=== PATIENT | female | born 1950 ===

== ENCOUNTER 2018-11-09 14:58 | Outpatient (CLI) | payer OTHER | END 2018-11-09 15:00 | disposition home or self-care (01) | LOC: RAD 14:58 | DX: M79.644 Pain in right finger(s) (principal) ==

== ENCOUNTER 2018-11-25 05:35 | Day surgery (SDC) | payer OTHER ==
[~2018-11-25 05:35] MED LIST: LEVOTHYROXINE25 MCG; LIPITOR 10MG; NEURONTIN 600MG; [UNRECOGNIZED DRUG - OTHER]
== END 2018-11-25 11:00 | disposition home or self-care (01) ==
LOC: CIR.AMB 05:35
DX: M65.311 Trigger thumb, right thumb (principal)